=== PATIENT | female | born 1980 | race Caucasian/White ===

== ENCOUNTER 2020-06-11 08:18 | Outpatient (CLI) | payer BC, SELFPAY ==
--- NOTE | ~2020-06-11 | US_ITS ---
US abdomen complete EXAMINATION: US Abdomen Complete INDICATION: Gastroesophageal reflux PROCEDURE: Realtime High Resolution abdomen ultrasound. COMPARISON: No prior studies for comparison FINDINGS: Gallbladder within normal limits. No gallstones, pericholecystic fluid, gallbladder wall t hickening or biliary dilatation. Common bile duct measures 3 mm. Liver echotexture within normal limits without focal mass. Pancreas within normal limits. Pancreati c tail is obscured by bowel gas. Spleen is unremarkeable. Renal echotexture is within normal limits bilaterally without hydronephrosis, contour deforming mass or renal stone. Right kidney measures 9.5 cm. Left kidney measures 9.6 cm. Visualized aspects of the aorta and IVC are within normal limits. Portal vein is patent. No sonograph ic Larry's sign indicated by the technologist. IMPRESSION: 1: Normal abdominal ultrasound. Reviewed, dictated and finalized at location A. ER COMMENTATOR
--- NOTE | ~2020-06-11 | XR_ITS ---
EXAMINATION: XR UGIAC wo kub DATE: 06/11/2020 09:19 INDICATION: Gastroesophageal reflux. Esophagitis. Epigastric pain. TECHNIQUE: Thick barium contrast with gas effervescent crystals were administered orally. Fluoroscop ic images of the esophagus, stomach, and proximal duodenum were obtained in various projections. The reafter, overhead images of the abdomen were performed. 1.1 minutes of fluroscopy. DAP 20. FINDINGS: Ultrasound dated 06/11/2020 The esophagus is normal in caliber, without mucosal lesions or strictures. There is normal esophagea l peristalsis. There is no hiatal hernia. No gastroesophageal reflux witnessed during the course of the study. The gastric folds are normal. The proximal duodenum is also normal in appearance. IMPRESSION: 1. Normal upper GI study. Reviewed, dictated and finalized at location A. ESTATE LISTING CONSULTANT IMPRESSION: 1. Normal upper GI study.
== END 2020-06-11 08:19 | disposition home or self-care (01) ==
PROVIDERS: PCP Emergency Medicine; Visit Provider Emergency Medicine
DX: K21.9 Gastro-esophageal reflux disease without esophagitis (principal)
CPT/HCPCS: 74246; 76700

== ENCOUNTER 2021-05-08 16:14 | Outpatient (CLI) | payer BC, SELFPAY ==
--- NOTE | ~2021-05-08 | MM_ITS ---
EXAMINATION: MM screening ayleen BI w gunner HISTORY: Screening mammogram TECHNIQUE: Craniocaudal and mediolateral oblique 3-D tomosynthesis images were obtained and synthetic 2-D images were generated. CAD analysis was submitted and interpreted. COMPARISON: No prior mammogram is available for comparison at this institution. BREAST PARENCHYMAL COMPOSITION: There are scattered areas of fibroglandular density. FINDINGS: There is no evidence of suspicious mass, calcification, or architectural distortion to sugg est malignancy in either breast. There has been no suspicious interval change. IMPRESSION: 1. No mammographic evidence of malignancy. 2. Recommend routine screening mammography in one year. BI-RADS Category 1: Negative Reviewed, dictated and finalized at location A. BULANCE DISPATCHER
== END 2021-05-08 16:15 | disposition home or self-care (01) ==
LOC: ANHIMG 16:16
PROVIDERS: PCP Emergency Medicine; Visit Provider Obstetrics & Gynecology
DX: Z12.31 Encounter for screening mammogram for malignant neoplasm of breast (principal)
CPT/HCPCS: 77063; 77067

== ENCOUNTER 2021-09-25 09:21 | Outpatient (CLI) | payer BC, SELFPAY ==
--- NOTE | ~2021-09-25 | US_ITS ---
EXAMINATION: US thyroid EXAM DATE: 09/25/2021 09:51 INDICATION: Moreno's thyroiditis. TECHNIQUE: Multiple grayscale and Doppler images of the thyroid were obtained (by a technologist who performed the scan) and subsequently reviewed. Individual nodules and recommendations may be reporte d in accordance with TI-RADS system as designated by the 2017 ACR White Paper TI-RADS committee. Comp spencer is made to prior examination from 07/14/2018. FINDINGS: The right thyroid lobe measures 4.1 x 1.7 x 1.6 in meters, the left measuring 4.2 x 2.0 x 1.4 cm. The re is diffusely heterogeneous thyroid echogenicity with mildly increased vascularity. There is a left thyroid lobe nodule measuring 1.2 x 1.0 x 1.6 cm, solid (2 points), hypoechoic (2 poi nts), wider than tall, smooth well defined margin, without echogenic foci, category TR4 for this nodu le. Measurements provided on previous examination at 1.4 x 0.7 x 0.5 cm, has demonstrated some inter cristal growth, but also was biopsied in 2019. Correlate with prior histology reports. IMPRESSION: Goiter. Mild enlargement previously biopsied nodule, correlate with prior histology. Reviewed, dictated and finalized at location B.
== END 2021-09-25 09:22 | disposition home or self-care (01) ==
LOC: ANHIMG 09:24
PROVIDERS: PCP Emergency Medicine; Visit Provider Emergency Medicine
DX: E06.3 Autoimmune thyroiditis (principal); E04.9 Nontoxic goiter, unspecified
CPT/HCPCS: 76536

== ENCOUNTER 2021-11-15 14:27 | Emergency (ER) | payer BC, SELFPAY ==
[2021-11-15 14:38] VITALS: BP 153/95; PULSE 70; RESP 16; TEMP 36.6; O2SAT 99
--- NOTE | 2021-11-15 14:56 | ED.EAR ---
HPI - Ear Problem General Chief complaint: Ear Stated complaint: Ear Pain Time Seen by Provider: 11/15/21 14:56 Source: patient Mode of arrival: ambulatory Limitations: no limitations History of Present Illness HPI Narrative: 40-year-old female presents with right ear pain and decreased hearing from right ear that started this morning. Reports yesterday she was dizzy but did not have any ear pain. Reports no other symptoms. Afebrile. All systems reviewed and negative except as noted above. Related Data Home Medications Medication Instructions Recorded Confirmed dextroamphetamine-amphetamine 11/15/21 fluoxetine mg 11/15/21 gemfibrozil mg 11/15/21 levothyroxine 11/15/21 norethindrone ac-eth estradiol tablet 11/15/21 [Tegan] Allergies Allergy/AdvReac Type Severity Reaction Status Date / Time fentanyl Allergy Unknown Verified 01/28/12 08:23 morphine Allergy Unknown Verified 01/28/12 08:23 Penicillins Allergy Unknown Verified 01/28/12 08:23 Review of Systems Review of Systems: CONSTITUTIONAL: Denies fever, chills, or sweats. EYES: Denies visual changes, redness, or discharge. ENT: Denies rhinorrhea, congestion, sore throat. Reports right ear pain and decreased hearing. CARDIOVASCULAR: Denies chest pain, palpitations, or edema. RESPIRATORY: Denies cough or dyspnea. GASTROINTESTINAL: Denies abdominal pain, nausea, vomiting, or diarrhea. GENITOURINARY: Denies dysuria or hematuria. SKIN: Denies rash or itching. MUSCULOSKELETAL: Denies back pain, joint pain, or myalgia. NEUROLOGIC: Denies headache, numbness, or weakness. PSYCHIATRIC: Denies anxiety or depression. All other systems reviewed are negative, except as documented in HPI. PMFSH Social History Social History Alcohol intake: never Comments At time of signature, agree with nursing past medical, surgical, social and family history. There is no relevant family history pertinent to the presenting complaint. Exam Narrative: GENERAL: This is a well-nourished, well-developed patient, in no apparent distress. HEAD: normocephalic, atraumatic. EYES: PERRL. Sclera clear/white. Vision is grossly intact. EARS: External ears normal, right ear canal is erythematous and swelling. There was cerumen impaction that was more removed with a lighted curette. The right TM is retracted and erythematous. Left TM and canal is normal. NOSE: External nose normal NECK: Neck supple, non-tender without lymphadenopathy, masses or thyromegaly. CARDIOVASCULAR: Regular rate and rhythm without murmurs, gallops, or rubs. RESPIRATORY: Clear to auscultation. Breath sounds equal bilaterally. No wheezes, rales, or rhonchi. SKIN: warm, Dry, intact with no suspicious lesions or rash, good texture and turgor. NEURO: awake, alert, and oriented to person, place and time. There were no obvious focal neurologic abnormalities. EXTREMITIES: Normal range of motion to all extremities. Course Course Level of Care: Express Care Visit Vital Signs Vital signs: Vital Signs Temperature 36.6 C 11/15/21 14:38 Pulse Rate 70 11/15/21 14:38 Respiratory Rate 16 11/15/21 14:38 Blood Pressure 153/95 H 11/15/21 14:38 Pulse Oximetry 99 11/15/21 14:38 Temperature 36.6 C 11/15/21 14:38 Pulse Rate 70 11/15/21 14:38 Respiratory Rate 16 11/15/21 14:38 Blood Pressure 153/95 H 11/15/21 14:38 Pulse Oximetry 99 11/15/21 14:38 Reviewed Procedures Ear Wax Removal Right Ear: Ear Wax Removal Date: 11/15/21 Ear Wax Removal Time: 15:08 Cerumenolytic Used: other (None) Results: Re-examined: cerumen removed completely TM Examination: TM(s) erythematous Ear Canal Exam: bleeding Noted Patient Tolerated Procedure: well Complications: pain Technique: ear canal curetted (Lighted curette) Medical Decision Making MDM Narrative Medical decision making narrative: Right TM erythematous and retracted, right canal is stefania
== END 2021-11-15 15:06 | disposition home or self-care (01) ==
PROVIDERS: Emergency Provider Nurse Practitioner Family; PCP Emergency Medicine
DX: H66.91 Otitis media, unspecified, right ear (principal); H60.501 Unspecified acute noninfective otitis externa, right ear; H61.21 Impacted cerumen, right ear
CPT/HCPCS: 69210; 99213; G0463

== ENCOUNTER 2025-03-31 15:04 | Emergency (ER) | payer OTHER, SELFPAY ==
[2025-03-31 15:11] VITALS: BP 156/87; PULSE 76; RESP 16; TEMP 36.6; O2SAT 100
--- NOTE | 2025-03-31 15:13 | ED.GENADULT ---
HPI - General Adult General Chief complaint: Unspecified Stated complaint: Rash In Mouth/Vaginal Time Seen by Provider: 03/31/25 15:22 Source: patient, RN notes reviewed and old records reviewed Mode of arrival: ambulatory Limitations: no limitations History of Present Illness HPI narrative: 44-year-old female presents to the [facility] with having a white patchy rash in her mouth. States that started 1 week ago she has been using ?natural stuff such as coconut oil, oregano, kefir. States it still mckeon her mouth, states the white patches are almost gone. States that she has a white thick discharge vaginally. Is declining in exam be his patient has brought her child with her. Patient requesting that she have of antifungal pills, Diflucan. Denies any chances of STIs, has not been sexually active. Related Data Home Medications ?Medication ?Instructions ?Recorded ?Confirmed ?Last Taken ?Type dextroamphetamine-amphetamine 11/15/21 11/16/24 Unknown History mg tablet fluoxetine 20 mg capsule mg 11/15/21 11/16/24 Unknown History levothyroxine 50 mcg tablet 75 mcg PO 11/15/24 11/16/24 Unknown History Allergies Allergy/AdvReac Type Severity Reaction Status Date / Time fentanyl Allergy Unknown Hives Verified 03/31/25 15:05 morphine Allergy Unknown Hives Verified 03/31/25 15:05 Penicillins Allergy Unknown Difficulty Verified 03/31/25 15:05 Breathing Review of Systems Review of Systems: All systems reviewed & are unremarkable except as noted in HPI and below Constitutional: Constitutional: Reports no additional constitutional complaints ENT: Reports system reviewed and no additional complaints, except as documented Cardiovascular: Cardiovascular: Reports no additional cardiovascular complaints, Denies chest pain and Denies dyspnea Respiratory: Respiratory: Reports no additional respiratory complaints, Denies chest congestion, Denies cough and Denies dyspnea Musculoskeletal: Musculoskeletal: Reports no additional musculoskeletal complaints Integumentary/Breasts: Skin/Breast: Reports as per HPI PMFSH Past Medical History Medical History Thyroid disorder Anxiety Arthritis Anemia Allergies Surgical History Surgical History History of delivery x 3 Family History Family History Grandparent Breast cancer Social History Social History Smoking status: Former smoker Alcohol intake: former Substance use: former Substance use type: marijuana Do You Feel Safe in your Home?: Yes Lack of Transportation: No Lack of Food: Never True Current Housing: I Have Housing Concerned About Future Housing: No Difficulty Paying Gas/Electric Bills: No Difficulty Paying for Meds: No Currently Unemployed: No Education: Trade/Vocational Certificate Difficulty w/ Childcare or Family Care: No Living arrangements: with family Occupation/Education: occupation Gender identity (if verbalized by the patient): Female Sexual Orientation (if Verbalized by the Patient): Straight or Heterosexual Comments At the time of my signature, I reviewed and agree with the nursing past medical, surgical, social, and family history. There is no relevant family history pertinent to the patient complaint. Exam Const: General: cooperative, healthy appearing, comfortable, no acute distress, well developed, alert and well nourished Nutritional Appearance: well nourished Orientation/consciousness: patient oriented x3 Limitations: no limitations HENMT: Head: normal to inspection Ears: hearing grossly normal bilaterally, external ears normal, TM's normal bilaterally, EAC's normal, mastoids normal and no periauricular adenopathy Mouth: Yes Normal oral and palatal mucosa present, Yes lip normal, Yes tongue normal and Yes moist mucous membranes Throat: posterior oropharynx normal, uvula midline and no uvular edema Eyes: General: appearance normal, both eyes and all related structures Alignment and Position: alignment normal Neck: Neck: normal visual inspection, full ROM, no lymphadenopathy and no meningeal signs Chest: Chest palpation & inspection: normal inspection of the chest Resp: Effort & Inspection: normal respiratory effort and able to speak in complete sentences Auscultation: clear to auscultation bilaterally, no crackles, no rales, no rhonchi and no wheezes Cardio: Rate: regular rate : Other: Patient declined exam had son with her Skin: General skin exam: normal color and no rashes or lesions noted Neuro: General: patient oriented x3, gait normal, moves all extremities and no meningeal signs Cognition (Neuro): normal cognition Speech: normal speech Gait exam (Neuro): Normal gait present Extrem: General: normal to inspection, full ROM, capillary refill normal and normal gait Psych: Appearance: grossly normal and well kempt Mental Status: mental status grossly normal Speech and movement: Normal speech and movement present and Clear speech present Affect: normal affect Attitude: cooperative Course Course Level of Care: Express Care Visit Vital Signs Vital signs: Vital Signs Temperature 97.8 F 03/31/25 15:11 Pulse Rate 76 03/31/25 15:11 Respiratory Rate 16 03/31/25 15:11 Blood Pressure 156/87 H 03/31/25 15:11 Pulse Oximetry 100 03/31/25 15:11 Oxygen Delivery Room Air 03/31/25 15:11 Temperature 97.8 F 03/31/25 15:11 Pulse Rate 76 03/31/25 15:11 Respiratory Rate 16 03/31/25 15:11 Blood Pressure 156/87 H 03/31/25 15:11 Pulse Oximetry 100 03/31/25 15:11 Oxygen Delivery Room Air 03/31/25 15:11 Reviewed Medical Decision Making MDM Narrative Medical decision making narrative: Pain patient sitting in exam room. Patient is nontoxic vitals stable. Patient presents with a rash that has been improving but would like treatment for thrush. Patient also with vaginal yeast infection. Encourage patient to follow-up with primary care provider for further evaluation, testing and treatment. Sent into [facility] for her. Discharge instructions reviewed with patient, as well as provided in writing per nursing staff. The instructions also include specific and strict return/GO TO THE ER as well as f/u information. All questions have been answered, and the patient deny any further questions with discharge and discharge plan. Some parts of this dictation were generated by voice recognition software and may contain typographical and/or grammatical inaccuracies. Differential Diagnosis Differential Diagnosis: Ease Medical Records Medical records reviewed: Yes I reviewed the external patient's medical records. Vital Signs Vital Signs: Vital Signs Temperature 97.8 F 03/31/25 15:11 Pulse Rate 76 03/31/25 15:11 Respiratory Rate 16 03/31/25 15:11 Blood Pressure 156/87 H 03/31/25 15:11 Pulse Oximetry 100 03/31/25 15:11 Oxygen Delivery Room Air 03/31/25 15:11 Temperature 97.8 F 03/31/25 15:11 Pulse Rate 76 03/31/25 15:11 Respiratory Rate 16 03/31/25 15:11 Blood Pressure 156/87 H 03/31/25 15:11 Pulse Oximetry 100 03/31/25 15:11 Oxygen Delivery Room Air 03/31/25 15:11 Reviewed Lab Data Lab results reviewed: Yes I reviewed the patient's lab results. Labs: Reviewed Critical Care Time Critical Care Time Critical Care Time: No Discharge Plan Discharge Clinical Impression: Yeast infection, Elevated blood pressure reading Patient Disposition: Home Condition: Stable Instructions: Antibiotic Form Additional Instructions: Today your blood pressure was 156/87. Follow-up with your primary care provider as scheduled on Thursday. Follow-up with performance consultant provider Patient Language: Maltese Prescriptions: New fluconazole 150 mg tablet 150 mg PO ONCE Qty: 2 0RF Rx Instructions: Take 1 tablet now, repeat in 72 hours No Action dextroamphetamine-amphetamine 20 mg tablet fluoxetine 20 mg capsule levothyroxine 50 mcg tablet 75 mcg PO norethindrone ac-eth estradiol [07/18 (21)] 1-20 mg-mcg tablet 1 tablet PO DAILY Qty: 63 3RF Follow-up/Referrals: Chintan Johnson MD [Primary Care Provider, Family Practice] - 3 Days Time of Disposition: 15:36
== END 2025-03-31 15:42 | disposition home or self-care (01) ==
PROVIDERS: Emergency Provider Nurse Practitioner; PCP Emergency Medicine
DX: B37.31 Acute candidiasis of vulva and vagina (principal); Z87.891 Personal history of nicotine dependence; M19.90 Unspecified osteoarthritis, unspecified site; E07.9 Disorder of thyroid, unspecified
CPT/HCPCS: 99213; G0463